=== PATIENT | female | born 1985 | race African-American/Black ===

== ENCOUNTER 2021-08-17 00:20 | Emergency (ER) | payer SELFPAY ==
[~2021-08-17] VITALS: Ht 170.2 cm; Wt 104.3 kg
[2021-08-17] MEDS ORDERED: TETANUS-DIPTH-ACEL PERTUSSIS 0.5ML SYR Tdap IM ONE (00:45)
[2021-08-17] MEDS ORDERED: CEPHALEXIN 250 MG CAP PO ONE (01:45)
[2021-08-17 02:16] VITALS: BP 174/109
== END 2021-08-17 02:24 | disposition home or self-care (01) ==
LOC: ER 00:22
DX: S41.012A Laceration without foreign body of left shoulder, initial encounter (principal); W26.9XXA Contact with unspecified sharp object(s), initial encounter; Y93.89 Activity, other specified; Y92.89 Other specified places as the place of occurrence of the external cause; Y99.8 Other external cause status
CPT/HCPCS: 90471; 90715; 96372